=== PATIENT | female | born 1990 | race Caucasian/White ===

== ENCOUNTER 2016-12-19 08:27 | Day surgery (SDC) | payer BC ==
[~2016-12-19] VITALS: Ht 162.6 cm; Wt 74.4 kg
[~2016-12-19 08:27] MED LIST: APRI1 EACH PO; CIPRO500 MG PO; CODEINE-GUAIFE473 ML PO; GUAIATUSSIN AC10 ML PO; IMODIUM A-1 MG/7.5 M PO; OTEZLA1 EACH; PERCOCET 7.5-31 EACH PO; PREDNISONE20 MG PO; ZOFRAN4 MG PO
--- NOTE | 2016-12-19 13:18 | NUR ---
12/19/16 1318 Rabia Abdi 1315-PATIENT ARRIVED TO PACU ON 8L MASK O2 SAT 100% PATIENT REACTIVE TO VOICE OPENING EYES DENIES PAIN AND FALLING BACK ASLEEP. NO DRAINAGE TO NAMITA AREA.
--- NOTE | 2016-12-19 13:59 | NUR ---
ICED WATER AND PUDDING GIVEN. MOTHER @ BS. CALL LIGHT W/IN REACH. PT DENIES ADD'L NEEDS.
[2016-12-19] MEDS ORDERED: IBUPROFEN800 MG PO (14:10)
[2016-12-19] MEDS ORDERED: NORCO 5-325 TA1 EACH PO (14:10)
--- NOTE | 2016-12-19 14:55 | NUR ---
1425: PATIENT TOLERATED PUDDING AND WATER. WATER REFILLED. DENIES PAIN. MOTHER AT BEDSIDE. CALL LIGHT WITHIN REACH. 1455: PATIENT ASSISTED OOB AND TO BATHROOM. GAIT STEADY. VOID WITHOUT DIFFICULTY. GAIT STEADY BACK TO ROOM. PATIENT GETTING DRESSED.
--- NOTE | 2016-12-20 08:14 | OR ---
[facility] [address] [place], [place] [address] Signed DATE OF PROCEDURE: 12/19/16 PREOPERATIVE DIAGNOSIS Moderate dysplasia of the cervix status post pain and increased anxiety during colposcopy. POSTOPERATIVE DIAGNOSIS Moderate dysplasia of the cervix status post pain and increased anxiety during colposcopy. PROCEDURE: Loop electrical excision procedure (LEEP). SURGEON: Jeremy Lee MD ANESTHESIA: General. ESTIMATED BLOOD LOSS: 10 mL. SPECIMEN: Cervix, endocervix, and endocervical curettings (ECC). DRAINS: None. FINDINGS Vagina normal. Cervix normal. A small acetowhite nonstaining area at 6-7 o'clock. No other lesions seen. COMPLICATION: None. DESCRIPTION OF PROCEDURE The patient was brought to the operating room, placed in supine position. After adequate general anesthesia was obtained, external prep done and the bladder emptied with a straight cath. The patient was placed in dorsal lithotomy position. A coated speculum with suction tip was inserted into the vagina and opened in order to visualize the entire cervix. The cervix was painted with acetic acid. The above findings were noted. Lugol solution was then carefully painted on the cervix and again findings noted as above. The entire cervix was then injected with 1% Lidocaine with Epinephrine in 360-degree fashion at multiple sites in the cervical tissue using spinal needle. A 10 x 20 mm loop electrode was then used with blended current to remove the cervical portion including the nonstaining area. A 10 x 10 loop was then used to remove the specimen within this following the endocervical canal labeled endocervix. The remaining portion of the cervix was scraped with a cork and curette and sent labeled as ECC. The cervix was observed. Ball electrode used for cautery in the biopsy site to control the Electronically Signed By: JEREMY LEE MD 12/20/16 0814 PATIENT NAME: TERRI BARRETT OPERATIVE REPORT DATE OF : 89 PHYSICIAN: JEREMY LEE MD REPORT #: [id number] REPORT IS CONFIDENTIAL AND NOT TO BE RELEASED WITHOUT AUTHORIZATION [facility] [address] [facility] [place], [place] [address] Signed bleeding. When good hemostasis was obtained, Monsel's solution was put in the cervical biopsy site for further help with hemostasis and then all instruments removed from the vagina. The patient tolerated the procedure well, went to recovery room in good condition. The sponge and instrument count correct for the procedure. The specimens labeled cervix, endocervix and ECC were all sent to pathology for identification. MD ZACH Mirza/Modl /[id number] cc: Alan Lopez MD Electronically Signed By: JEREMY LEE MD 12/20/16 0814 PATIENT NAME: TERRI BARRETT OPERATIVE REPORT DATE OF : [birth year] PHYSICIAN: JEREMY LEE MD REPORT #: [id number] REPORT IS CONFIDENTIAL AND NOT TO BE RELEASED WITHOUT AUTHORIZATION
== END 2016-12-19 15:10 | disposition home or self-care (01) ==
LOC: DS 08:27 → OPS 08:27 → DS 12:15 → OPS 13:00
PROVIDERS: General Practice
PROC: 0UBC7ZX Excision of Cervix, Via Natural or Artificial Opening, Diagnostic (ICD-10-PCS; principal; 2016-12-19 13:00)
DX: D06.9 Carcinoma in situ of cervix, unspecified (principal); J30.2 Other seasonal allergic rhinitis; F41.9 Anxiety disorder, unspecified; Z79.82 Long term (current) use of aspirin; Z90.49 Acquired absence of other specified parts of digestive tract; Z98.890 Other specified postprocedural states; Z79.899 Other long term (current) drug therapy
CPT/HCPCS: 00940; J1100; J1885; J2250; J2405; J2704; J3010; J7120

== ENCOUNTER 2021-01-18 07:43 | Day surgery (SDC) | payer OTHER ==
[~2021-01-18] VITALS: Ht 162.6 cm; Wt 81.8 kg
--- NOTE | ~2021-01-18 | OR ---
[facility] [address] [place], [place] [address] Draft DATE OF OPERATION: 01/18/2021 SURGEON: Rad Doan DO PREOPERATIVE DIAGNOSIS: Pelvic pain, abnormal uterine bleeding, dyspareunia, and dysmenorrhea. POSTOPERATIVE DIAGNOSES: Pelvic pain, AUB, dyspareunia, dysmenorrhea, grade 3 endometriosis, pelvic congestion. PROCEDURES PERFORMED: Diagnostic laparoscopy, chromotubation, hysteroscopy, D and C. UNIVERSITY INTERN: Dr. Prescott. ANESTHESIA: General. BLOOD LOSS: 10 mL. SPECIMEN: Endometrial curettings. FINDINGS: Normal-appearing cervix and endocervical canal. Endometrium polypoid in appearance, but otherwise normal tubal ostia visualized bilaterally. Normal-appearing uterus and tubes. Small paratubal cyst on right fimbria. Normal-appearing bilateral ovaries. However, bilateral pelvic congestion noted at ovarian vasculature. Spillage noted from both tubes . Multiple small clear vesicular endometriosis blebs present directly overlying bladder. scarring endometriosis lesions in left ovarian fossa. Bowel endometriosis present. Adherent sigmoid colon to left pelvic sidewall. No endometriosis was noted in posterior cul-de-sac or right ovarian fossa or elsewhere on bilateral pelvic sidewalls. COMPLICATIONS: None. DESCRIPTION OF PROCEDURE: PATIENT NAME: TERRI BARRETT OPERATIVE REPORT DATE OF : [birth year] REPORT #: [id number] PHYSICIAN: RAD DOAN DO PCP: JESUS ALBERTO MCCOLLUM MD REPORT IS CONFIDENTIAL AND NOT TO BE RELEASED WITHOUT AUTHORIZATION [facility] [address] [place], [place] [address] Draft The patient was taken to the operating room where she was placed in dorsal lithotomy under general anesthesia. She was prepped and draped in the normal sterile fashion. A weighted speculum was placed in the vagina and anterior lip of the cervix was grasped with an Allis clamp. Cervix was easily sequentially dilated with Hegar dilators up to size 6 to accommodate 6 mm scope. Hysteroscope was then introduced without any difficulty with the uterus survey with findings as noted above. MyoSure Reach device was used to complete circumferential curettage of the endometrial lining, taking note of polypoid appearance. All instrumentation was removed. [place] uterine manipulator was placed. Surgeon's gloves were changed and attention was turned to the abdomen. 2 mL of local anesthetic were injected infraumbilically through the patient's prior scar. A 5 mm vertical infraumbilical incision was made and direct entry with 5 mm trocar was performed. Abdomen was insufflated. Pneumoperitoneum was achieved with CO2 gas to better facilitate exam of the pelvis. The patient was placed in Trendelenburg positioning and an additional 5 mm trocar was placed in the right lateral abdomen under direct visualization and local anesthetic through prior laparoscopic scar. Abdomen was thoroughly surveyed with findings as noted above. Due to dense scarring of the bowel, risk of bowel injury, decision was made to perform chromotubation and no excision of endometriosis was performed at this time. A 20 mL dilute methylene blue were injected through the acromion nebulizer and bilateral spillage of dye was noted from each fimbriated end as noted above. Instrumentation was removed. Pneumoperitoneum was evacuated. Skin was closed with 4-0 Monocryl. Acron manipulator and Allis clamp were removed vaginally. Wells catheter was removed. The patient was taken to recovery room in sterile and satisfactory condition. DO MANI Wright/DOE /[id number] Copies: ~ PATIENT NAME: TERRI BARRETT OPERATIVE REPORT DATE OF : [birth year] REPORT #: [id number] PHYSICIAN: RAD DOAN DO PCP: JESUS ALBERTO MCCOLLUM MD REPORT IS CONFIDENTIAL AND NOT TO BE RELEASED WITHOUT AUTHORIZATION
[~2021-01-18 07:43] MED LIST changes: +AMOXICILLIN500 MG PO; +IBUPROFEN800 MG PO; +NORCO 5-325 TA1 EACH PO
--- NOTE | 2021-01-18 12:20 | NUR ---
01/18/21 1220 Mishel Wang 1208- PT ARRIVES TO PACU AWAKE AND TRYING TO COUGH. PT REPORTS SHE FEELS LIKE SHE NEEDS TO COUGH BUT IS UNABLE TO. PT IS ABLE TO TALK AND RESP ARE EVEN. OXYEN SAT HIGH 90'S TO 100% ON 6L VIA MASK. WALL ATTENDANT AT THE BEDSIDE AND GIVING MEDICATION TO HELP. 1214- PT STILL HAS NOT BEEN ABLE TO COUGH. PT REPORTS THE FEELING LIKE SHE HAS TO COUGH IS GETTING BETTER. RESP EVEN AND UNLABORED. OXYGEN SAT IN THE HIGH 90'S TO 100% ON 6L VIA MASK. 1217- DR. ESPINOSA AT THE BEDSIDE TO TALK WITH THE PT. 1218- OXYGEN TITRATED OFF AND PT IS ABLE TO COUGH. PT REPORTS SHE FEELS MUCH BETTER BEING ABLE TO COUGH.
--- NOTE | 2021-01-18 12:48 | NUR ---
REQUESTS PAIN MED. EATING CRACKER AND NORCO GIVEN. 09/07 PAIN.
--- NOTE | 2021-01-18 13:36 | NUR ---
AWOKE FOR VS. PAIN MED WORKING
--- NOTE | 2021-01-18 13:43 | NUR ---
amb to br voids 100mls yellow urine with spots of red. changed pads
--- NOTE | 2021-01-18 14:08 | NUR ---
GETTING DRESSED AND HAD EMESIS APPROX 150 MLS. STATES FEELS BETTER CONTINUING GETTING DRESSED
--- NOTE | 2021-01-19 12:48 | PATH ---
[facility] [address] [place], [place] [address] Signed SPECIMEN(S): A ENDOMETRIAL CURETTINGS SPECIMEN SOURCE: A. ENDOMETRIAL CURETTINGS CLINICAL HISTORY: Pelvic pain, dyspareunia, AUB. FINAL PATHOLOGIC DIAGNOSIS: Endometrium, curettage: - Inactive endometrium with exogenous hormone effect; no hyperplasia or neoplasia identified. BRP:cait:LICHA MICROSCOPIC EXAMINATION: Histologic sections of all submitted blocks are examined by light microscopy. These findings, together with the gross examination, support the pathologic diagnosis. GROSS DESCRIPTION: The specimen, labeled "SS, endometrial curettings," is received in formalin and consists of pink-dietrich, irregular shaped fibromembranous tissue fragments that aggregate measure 3.0 x 2.1 x 0.2 cm. Specimen is entirely submitted in cassette (A1). JS (under the direct supervision of a pathologist) The Gross Description was prepared using a voice recognition system. The report was reviewed for accuracy; however, sound-alike word errors, addition and/or deletions may occur. If there is any question about this report, please contact Client Services. PERFORMING LABORATORY: The technical component was performed by [facility], [address] [place] [address] (Upholstery Department Supervisor: Margaret Pedraza MD; CLIA# [id number]). [facility], [address] [address] (CLIA# [id number]). Diagnostician: Alexi Fernandez MD Pathologist Electronically Signed 01/19/2021 PATIENT NAME: TERRI BARRETT PATHOLOGY DATE OF : [birth year] REPORT #: [id number] PHYSICIAN: RJ PATHOLOGY PCP: JESUS ALBERTO MCCOLLUM MD REPORT IS CONFIDENTIAL AND NOT TO BE RELEASED WITHOUT AUTHORIZATION [address] [address] Signed Copies: ~ PATIENT NAME: TERRI BARRETT PATHOLOGY DATE OF : [birth year] REPORT #: [id number] PHYSICIAN: RJ PATHOLOGY PCP: JESUS ALBERTO MCCOLLUM MD REPORT IS CONFIDENTIAL AND NOT TO BE RELEASED WITHOUT AUTHORIZATION
== END 2021-01-18 14:20 | disposition home or self-care (01) ==
LOC: DS 07:43
PROVIDERS: ATTEND Obstetrics & Gynecology
PROC: 0UJ84ZZ Inspection of Fallopian Tube, Percutaneous Endoscopic Approach (ICD-10-PCS; principal; 2021-01-18 10:00)
PROC: 0UDB7ZX Extraction of Endometrium, Via Natural or Artificial Opening, Diagnostic (ICD-10-PCS; 2021-01-18 10:00)
DX: N85.8 Other specified noninflammatory disorders of uterus (principal); N94.10 Unspecified dyspareunia
CPT/HCPCS: 00840; 84703; 85027; J0131; J1100; J1885; J2405; J3010; J7040; J7121; Q9968

== ENCOUNTER 2022-05-14 16:35 | Emergency (ER) | payer OTHER ==
[~2022-05-14] VITALS: Ht 162.6 cm; Wt 85.7 kg
[2022-05-14] MEDS ORDERED: AMOX TR-K CLV1 EAC1 PO (21:53)
--- NOTE | 2022-05-16 21:31 | CONS ---
[facility] [address] [place], [place] [address] Signed DATE OF CONSULTATION: 05/14/2022 REQUESTING PHYSICIAN: Dr. Lira. HISTORY OF PRESENT ILLNESS: The patient is a 31-year-old female, 0, who is status post a laparoscopic hysterectomy at [facility] on January 16. This was done for chronic pelvic pain with endometriosis. She had lysis of adhesions with TLH-BS as well as excision of endometriosis and cystoscopy. She reports that since the time of her surgery, her pain has never really resolved. She has had ongoing low pelvic pain and she reports intermittent low-grade fever since her surgery. She was treated for an ear infection with Augmentin for seven days and actually felt a little bit better as far as her pain went. She was seen again in [place] and had a CT, which showed cuff inflammation and was then placed on Bactrim and Flagyl. She started feeling better after being on her antibiotics. After completing them, felt well for approximately five days, but then the pain worsened and fever returned. Today, her temp was elevated with tachycardia and she presented to the ED. She denies any vaginal bleeding since her hysterectomy. She has had no urinary complaints. She has been having watery diarrhea, however, which occurs after every episode of eating or drinking. She has no pain with the bowel movements otherwise and denies any blood or mucus per rectum. She does have a follow up appointment in [place] on May 21. PAST MEDICAL HISTORY: SURGERIES: T and A at age 5 and 16, laparoscopic cholecystectomy , laparoscopy with hysteroscopy January 16, 2022; TLH-BS, lysis of adhesions, removal of endometriosis and cystoscopy. ILLNESSES: Negative for hypertension, diabetes, murmur, asthma, liver and kidney problems. Positive for migraines. MEDICATIONS: Microgestin. ALLERGIES: No known allergies. HABITS: Negative for tobacco. Occasional alcohol use. No drugs. REVIEW OF SYSTEMS: Otherwise negative except as in the HPI. PHYSICAL EXAMINATION: Electronically Signed By: LYNDA SENIOR MD 05/16/22 2131 PATIENT NAME: TERRI BARRETT CONSULTATION DATE OF : 89 REPORT #: [id number] PHYSICIAN: LYNDA SENIOR MD PCP: JULIAN GERMAIN REPORT IS CONFIDENTIAL AND NOT TO BE RELEASED WITHOUT AUTHORIZATION [facility] [address] [place], [place] [address] Signed VITAL SIGNS: Blood pressure is 111/80, pulse 99, temp 98.2, T-max was 100.3. GENERAL: She is a well-developed, well-nourished female, in no acute distress. She is alert and oriented. Her affect is pleasant. ABDOMEN: Soft. She is tender in the low abdomen. There was no rebound. PELVIC: The external genitalia are normal. The vagina itself is nontender until the cuff is touched and it is exquisitely tender, but there is no mass palpated and there is no defect in the cuff. The cervix and uterus were absent. There were no adnexal masses. RECTAL: Deferred. LABORATORY DATA: H and H were 14.9 and 46.2, white count was 14.3 with platelets of 441, segs 73.5, lymphocytes 18.7. Lactic acid was 2. CMP was normal except for a slightly elevated ALT of 66. UA was negative. COVID negative. CT, fatty liver with no other abnormalities. IMPRESSION: Possible cuff cellulitis, given the pain on her exam. There was no evidence of any abscess. She is also having significant diarrhea and giving her antibiotic history, she is at risk for C diff. This could cause the fever and the white count, but this is not likely to cause the pain at the vaginal cuff. PLAN: Check stool cultures and C diff. Restart Augmentin 875 b.i.d. for seven days. Follow up Friday at [facility]. Lynda Senior MD PJW/EDUARDOL /[id number] Copies: ~ Electronically Signed By: LYNDA SENIOR MD 05/16/222130 PATIENT NAME: TERRI BARRETT CONSULTATION DATE OF : 89 REPORT #: [id number] PHYSICIAN: LYNDA SENIOR MD PCP: JULIAN GERMAIN REPORT IS CONFIDENTIAL AND NOT TO BE RELEASED WITHOUT AUTHORIZATION
== END 2022-05-15 00:50 | disposition home or self-care (01) ==
LOC: ED 16:35
DX: R10.2 Pelvic and perineal pain (principal); Z79.899 Other long term (current) drug therapy
CPT/HCPCS: 36415; 74177; 80053; 81003; 83605; 83690; 85025; 87493; 87502; 96374; 96375; 99284-25; A9270; J1885; J3010; J7030; U0003

== ENCOUNTER 2023-05-18 07:09 | Emergency (ER) | payer OTHER ==
[~2023-05-18] VITALS: Ht 162.6 cm; Wt 75.5 kg
[~2023-05-18 07:09] MED LIST changes: +AMOX TR-K CLV1 EAC1 PO; +CYCLOBENZAPRINE5 MG PO; +GABAPENTIN300 MG PO; +MICROGESTIN1 EAC1 PO; +OMEPRAZOLE20 MG PO; +PANTOPRAZOLE SO40 MG PO; +SUCRALFATE1 GM PO
[2023-05-18] MEDS ORDERED: IBUPROFEN 600 MG TAB PO ONE (07:45)
[2023-05-18] MEDS ORDERED: ONDANSETRON 4 MG TAB ODT SL ONE (07:45)
[2023-05-18] MEDS ORDERED: HYDROCODONE/ACETA 7.5/325 TAB PO ONE (07:45)
[2023-05-18] MEDS ORDERED: AMOXICILLIN 500 MG CAP PO ONE (07:45)
[2023-05-18] MEDS ORDERED: OSELTAMIVIR PHO75 MG PO (08:02)
[2023-05-18] MEDS ORDERED: HYDROCODON-ACE1 EA10 PO (09:06)
[2023-05-18] MEDS ORDERED: AMOXICILLIN500 MG PO (09:06)
[2023-05-18 09:17] VITALS: BP 111/67
== END 2023-05-18 09:18 | disposition home or self-care (01) ==
LOC: ED 07:09
DX: J11.1 Influenza due to unidentified influenza virus with other respiratory manifestations (principal); H66.91 Otitis media, unspecified, right ear; Z79.899 Other long term (current) drug therapy
CPT/HCPCS: 99283; A9270

== ENCOUNTER 2023-09-24 10:10 | Emergency (ER) | payer OTHER ==
[~2023-09-24] VITALS: Ht 162.6 cm; Wt 71.0 kg
[~2023-09-24 10:10] MED LIST changes: +HYDROCODON-ACE1 EA10 PO; +OSELTAMIVIR PHO75 MG PO
--- OUTSIDE RECORDS SUMMARY | 2023-09-24 10:11 | XMS ---
PreManage Notification: TERRI BARRETT Security Customer Experience Professional Events No recent Security Events currently on file CRITERIA MET - [facility] PROVIDERS There are no care providers on record at this time. Yin has no Care Guidelines for this patient. Jarrod VISIT COUNT (12 MO.) 2 SRIKANTH Verma TOTAL 2 NOTE: Visits indicate total known visits. ED/UCC VISIT TRACKING (12 MO.) 09/24/2023 10:11 SRIKANTH Montes [place] TYPE: Emergency COMPLAINT: - ABDOMINAL PAIN 05/18/2023 07:10 SRIKANTH Montes [place] TYPE: Emergency COMPLAINT: - FLU LIKE SYMPTOMS DIAGNOSES: - Cough, unspecified - Influenza due to unidentified influenza virus with other respiratory manifestations - Other correction (current) drug therapy - Otitis media, unspecified, right ear INPATIENT VISIT TRACKING (12 MO.) No inpatient visits to display in this time frame [email or web address]
[2023-09-24] MEDS ORDERED: HYDROXYZINE HCL25 MG PO (10:53)
[2023-09-24] MEDS ORDERED: PANTOPRAZOLE SO40 MG PO (10:53)
[2023-09-24] MEDS ORDERED: SODIUM CHLORIDE 0.9% 1,000 ML IV ONE (11:00)
[2023-09-24] MEDS ORDERED: PANTOPRAZOLE SODIUM 40 MG/10 ML VIAL IV ONE (11:00)
[2023-09-24] MEDS ORDERED: ondansetron HCL 4 MG/2 ML VIAL IV ONE (11:00)
[2023-09-24 11:08] LABS: BASOPHILS 0.6 % (0-2); EOSINOPHILS 0.7 % (0-6); HEMATOCRIT 39.4 % (35.0-50.0); HEMOGLOBIN 13.3 g/dL (12.0-18.0); LYMPHOCYTES 23.1 % (24-44); MCH 29.8 (27-36); MCHC 33.7 g/dl (30-36); MCV 88.3 fl (81-99); MONOCYTES 7.3 % (0-12); NEUTROPHILS 68.3 % (39-80); PLATELET COUNT 306 K/uL (140-440); RBC 4.46 M/ul (4.3-5.7); RDW 13.9 (10.5-15.0)
[2023-09-24 11:09] LABS: BILIRUBIN, URINE NEGATIVE (negative); BLOOD/HGB, URINE NEGATIVE (Negative); KETONE, URINE NEGATIVE (Negative); LEUK ESTERASE, URINE NEGATIVE (negative); NITRITE, URINE NEGATIVE (negative); PH, URINE 5.5 (5-7)
[2023-09-24 11:23] LABS: ALBUMIN 3.9 g/dL (3.4-5.0); ANION GAP 12.8 (7-21); BILIRUBIN, TOTAL 0.4 ng/dL (0.2-1.0); BUN/CREATININE RATIO 12.94 (6.0-28.6); CALCIUM 9.2 mg/dL (8.5-10.1); CREATININE, SERUM 0.85 mg/dL (0.55-1.02); POTASSIUM 3.8 mmol/L (3.5-5.1); PROTEIN, TOTAL 7.8 g/dL (6.4-8.2)
[2023-09-24] MEDS ORDERED: HYDROCODONE/ACETA 5/325 TAB PO ONE (12:00)
[2023-09-24] MEDS ORDERED: PROMETHAZINE HC25 M1 PO (12:04)
[2023-09-24] MEDS ORDERED: DICYCLOMINE HCL20 MG PO (12:04)
[2023-09-24] MEDS ORDERED: ONDANSETRON ODT8 MG PO (12:04)
[2023-09-24] MEDS ORDERED: HYDROCODON-ACE1 EA10 PO (12:04)
[2023-09-24 12:14] VITALS: BP 111/74
== END 2023-09-24 12:14 | disposition home or self-care (01) ==
LOC: ED 10:10
PROVIDERS: Emergency Medicine
DX: K29.80 Duodenitis without bleeding (principal); Z79.899 Other long term (current) drug therapy
CPT/HCPCS: 36415; 80053; 81003; 83690; 85025; C9113; J2405; J7030

== ENCOUNTER 2024-03-26 09:09 | Emergency (ER) | payer OTHER ==
[~2024-03-26] VITALS: Ht 162.6 cm; Wt 72.1 kg
[~2024-03-26 09:09] MED LIST changes: +DICYCLOMINE HCL20 MG PO; +HYDROXYZINE HCL25 MG PO; +ONDANSETRON ODT8 MG PO; +PROMETHAZINE HC25 M1 PO
[2024-03-26] MEDS ORDERED: HYDROCODONE/ACETA 5/325 TAB PO ONE (10:00)
[2024-03-26] MEDS ORDERED: LIDOCAINE & ANTACID 35 ML BTL PO ONE (10:00)
[2024-03-26] MEDS ORDERED: DICYCLOMINE HCL 10 MG CAP PO ONE (10:00)
[2024-03-26 10:14] LABS: BASOPHILS 0.5 % (0-2); EOSINOPHILS 0.6 % (0-6); HEMATOCRIT 40.6 % (35.0-50.0); HEMOGLOBIN 13.7 g/dL (12.0-18.0); LYMPHOCYTES 24.2 % (24-44); MCH 30.1 (27-36); MCHC 33.7 g/dl (30-36); MCV 89.4 fl (81-99); NEUTROPHILS 67.7 % (39-80); PLATELET COUNT 305 K/uL (140-440); RBC 4.54 M/ul (4.3-5.7); RDW 14.2 (10.5-15.0)
[2024-03-26] MEDS ORDERED: ESCITALOPRAM OX20 MG PO (10:24)
[2024-03-26] MEDS ORDERED: METOCLOPRAMIDE H5 MG PO (10:24)
[2024-03-26] MEDS ORDERED: VALACYCLOVIR500 MG PO (10:25)
[2024-03-26] MEDS ORDERED: ACID REDUCER20 MG PO (10:25)
[2024-03-26 10:29] LABS: ALBUMIN 3.9 g/dL (3.4-5.0); ALBUMIN/GLOBULIN RATIO 0.91 (1.1-2.4); ANION GAP 14.7 (7-21); BILIRUBIN, TOTAL 0.8 ng/dL (0.2-1.0); BUN/CREATININE RATIO 10.58 (6.0-28.6); CREATININE, SERUM 0.85 mg/dL (0.55-1.02); POTASSIUM 3.7 mmol/L (3.5-5.1); PROTEIN, TOTAL 8.2 g/dL (6.4-8.2)
[2024-03-26 11:15] VITALS: BP 106/72
== END 2024-03-26 11:15 | disposition home or self-care (01) ==
LOC: ED 09:09
PROVIDERS: Emergency Medicine
DX: R10.12 Left upper quadrant pain (principal); Z79.899 Other long term (current) drug therapy
CPT/HCPCS: 36415; 80053; 83690; 85025; 99284

== ENCOUNTER 2024-06-09 22:44 | Emergency (ER) | payer OTHER ==
[~2024-06-09] VITALS: Ht 162.6 cm; Wt 71.0 kg
[~2024-06-09 22:44] MED LIST changes: +ACID REDUCER20 MG PO; +ESCITALOPRAM OX20 MG PO; +METOCLOPRAMIDE H5 MG PO; +VALACYCLOVIR500 MG PO
[2024-06-09] MEDS ORDERED: HYDROXYZINE HCL10 MG PO (22:59)
[2024-06-09] MEDS ORDERED: HYDROmorphone HCL 1 MG/ML SYR IV PRN (23:00)
[2024-06-09] MEDS ORDERED: COLESTIPOL HCL1 GM (23:00)
[2024-06-09] MEDS ORDERED: ondansetron HCL 4 MG/2 ML VIAL IV ONE (23:00)
[2024-06-09] MEDS ORDERED: SODIUM CHLORIDE 0.9% 1,000 ML IV ONE (23:00)
[2024-06-09] MEDS ORDERED: SERTRALINE HCL25 MG (23:00)
[2024-06-09 23:08] LABS: BASOPHILS 0.2 % (0-2); EOSINOPHILS 1.1 % (0-6); HEMATOCRIT 43.9 % (35.0-50.0); HEMOGLOBIN 14.9 g/dL (12.0-18.0); LYMPHOCYTES 4.8 % (24-44); MCH 29.8 (27-36); MCHC 33.9 g/dl (30-36); MONOCYTES 3.4 % (0-12); NEUTROPHILS 90.5 % (39-80); PLATELET COUNT 369 K/uL (140-440); RBC 4.99 M/ul (4.3-5.7); RDW 14.2 (10.5-15.0)
[2024-06-09 23:12] LABS: BILIRUBIN, URINE POSITIVE (negative); BLOOD/HGB, URINE NEGATIVE (Negative); KETONE, URINE NEGATIVE (Negative); LEUK ESTERASE, URINE NEGATIVE (negative); NITRITE, URINE NEGATIVE (negative)
[2024-06-09 23:24] LABS: ALBUMIN 4.2 g/dL (3.4-5.0); ANION GAP 17.7 (7-21); BILIRUBIN, TOTAL 0.8 mg/dL (0.2-1.0); BUN/CREATININE RATIO 22.22 (6.0-28.6); CALCIUM 8.9 mg/dL (8.5-10.1); CREATININE, SERUM 0.9 mg/dL (0.55-1.02); POTASSIUM 3.7 mmol/L (3.5-5.1); PROTEIN, TOTAL 8.4 g/dL (6.4-8.2)
[2024-06-10] MEDS ORDERED: METOCLOPRAMIDE HCL 10 MG/2 ML SDV IV ONE (00:30)
[2024-06-10] MEDS ORDERED: SODIUM CHLORIDE 0.9% 1,000 ML IV ONE (00:30)
[2024-06-10] MEDS ORDERED: REGLAN10 MG PO (01:49)
[2024-06-10] MEDS ORDERED: HYDROCODON-ACE1 EA10 PO (01:49)
[2024-06-10] MEDS ORDERED: HYDROCODONE BIT/ACETAMINOPHEN 5/325 MG 1 TAB HOME.PACK PO ONE (02:00)
[2024-06-10 02:08] VITALS: BP 93/66
== END 2024-06-10 02:10 | disposition home or self-care (01) ==
LOC: ED 22:44
PROVIDERS: Family Medicine
DX: R19.7 Diarrhea, unspecified (principal); K31.84 Gastroparesis; Z79.899 Other long term (current) drug therapy
CPT/HCPCS: 36415; 74177; 80053; 81003; 83690; 83735; 84703; 85025; 85060; 96361; 96375; 96376; 99284-25; A9270; J1171; J2405; J2765; J7030; Q9967

== ENCOUNTER 2025-02-06 12:20 | Emergency (ER) | payer BC ==
[~2025-02-06] VITALS: Ht 162.6 cm; Wt 74.0 kg
[~2025-02-06 12:20] MED LIST changes: +COLESTIPOL HCL1 GM; +HYDROXYZINE HCL10 MG PO; +REGLAN10 MG PO; +SERTRALINE HCL25 MG
[2025-02-06 13:26] LABS: BASOPHILS 0.3 % (0.1-1.2); EOSINOPHILS 0.1 % (0.7-5.8); LYMPHOCYTES 9.3 % (19.3-51.7); MCH 31.2 PG (25.6-32.2); MCHC 33.4 g/dL (32.2-35.5); MCV 93.3 fL (79.4-94.8); MONOCYTES 6.1 % (4.7-12.5); NEUTROPHILS 83.8 % (34.0-71.1); RBC 4.46 M/uL (3.93-5.22)
[2025-02-06 13:50] LABS: ALT (SGPT) 16.0 U/L (14-59); AST (SGOT) 10.0 U/L (15-37); GLOMERULAR FILTRATION RATE,EST 96.0 mL/min (>60); PROTEIN, TOTAL 8.1 g/dL (6.4-8.2); UREA NITROGEN 12.0 mg/dL (7-18)
[2025-02-06 13:55] LABS: CORONAVIRUS COVID-19 AG NEGATIVE (NEGATIVE)
[2025-02-06] MEDS ORDERED: SODIUM CHLORIDE 0.9% 1,000 ML IV PRN (14:30)
[2025-02-06 14:48] LABS: LACTIC ACID, BLOOD 1.1 mmol/L (0.4-2.0)
[2025-02-06] MEDS ORDERED: AMOXICILLIN/CLAVULANATE K 875 MG TAB PO ONE (15:30)
[2025-02-06] MEDS ORDERED: AMOX TR-K CLV1 EAC1 PO (15:37)
[2025-02-06] MEDS ORDERED: ONDANSETRON ODT8 MG PO (15:38)
[2025-02-06] MEDS ORDERED: ACETAMINOPHEN 500 MG TAB PO ONE (15:45)
[2025-02-06] MEDS ORDERED: KETOROLAC TROMETHAMINE 15 MG/ML VIAL IV ONE (15:45)
[2025-02-06 19:18] VITALS: BP 105/64
--- NOTE | 2025-02-07 09:55 | EKG ---
[facility] [address] [facility] [place], [place] [address] Signed Sinus tachycardia Low voltage QRS Borderline ECG No previous ECGs available Confirmed by Spencer Wynn DO ([id number]) on 02/07/2025 9:55:13 AM Electronically Signed By: SPENCER WYNN DO 02/07/25 0955 PATIENT NAME: TERRI YANG Electrocardiogram DATE OF : [birth year] PHYSICIAN: SPENCER WYNN DO REPORT #: [id number] REPORT IS CONFIDENTIAL AND NOT TO BE RELEASED WITHOUT AUTHORIZATION
== END 2025-02-06 19:19 | disposition home or self-care (01) ==
LOC: ED 12:20
PROVIDERS: Emergency Medicine
DX: H66.92 Otitis media, unspecified, left ear (principal); H65.91 Unspecified nonsuppurative otitis media, right ear
CPT/HCPCS: 36415; 70450; 71045; 80053; 83605; 85025; 87040; 93005; 93010; 96374; 99284-25; A9270; J1885; J7030